=== PATIENT | male | born 1990 | race Caucasian/White ===

== ENCOUNTER 2024-08-13 09:47 | Inpatient (IN) ==
--- NOTE | 2024-08-13 09:53 | Emergency Department Note ---
Impression & Plan Pulmonary embolism, Hypoxia, Elevated troponin, Tachycardia, Right ventricular dilation, secondary ED Provider Note CHIEF COMPLAINT: Shortness of breath HISTORY OF PRESENTING ILLNESS: This 34-year-old male patient presents to the emergency department via EMS with his family for evaluation of shortness of breath that started 2 days ago. The patient states that he feels dizzy whenever he has SOB. Any kind of exertion causes increased SOB. Feels like he can't take a deep breath without his chest feeling tight. However, denies chest pain other than the tightness from the SOB. He was sick last week, but no longer having any cough or URI symptoms. Had a low grade fever last week, but none this week. No previous history of problems with his lungs or heart. He is a former smoker and currently vapes. The patient denies recent long car or plane rides or recent injury/trauma/surgery. Denies any personal history of blood clots or bleeding disorders. Denies any family history of blood clots or bleeding disorders. Denies any hormonal medication use. Denies any hemoptysis. Denies leg/calf pain or swelling. Denies abdominal pain, nausea, or vomiting. The patient used an albuterol inhaler twice this morning without improvement of his symptoms. REVIEW OF SYSTEMS: See HPI for pertinent positives and pertinent negatives. ALLERGIES: NKDA MEDICATIONS: Sertraline, Amitriptyline, Omeprazole, Vit D PAST MEDICAL HISTORY: Anxiety, Depression, GERD, PHYSICAL EXAM: VITALS: Vitals are noted on the nurse's note and reviewed by myself. GENERAL: Non toxic, no acute distress, non-diaphoretic. SKIN: No obvious abnormal rashes or skin lesions. Capillary refill <2 sec. EYES: PERRLA. EOMI. Conjunctivae without injection, sclerae without icterus. NOSE: Patent without discharge. MOUTH: Mucous membranes moist. Uvula midline. Airway patent. NECK: Supple without nuchal rigidity. HEART: Tachycardic without murmurs gallops or rubs. LUNGS: Clear to auscultation bilaterally without wheezes, rales or rhonchi. No retractions or accessory muscle use. ABDOMEN: Positive bowel sounds x 4. Normal tympanic percussion. Soft, nontender. No masses or organomegaly. Alanis sign negative. No guarding or rebound tenderness. No focal RLQ or LLQ tenderness. MUSCULOSKELETAL: No gross musculoskeletal defects. Bilateral lower extremities without erythema, edema, warmth, tenderness to palpation, or cording felt. Negative Homans' sign. Peripheral pulses 2+ and equal in the bilateral upper and lower extremities. NEURO: Patient was alert and oriented. No focal neurological deficits. DIFFERENTIAL DIAGNOSIS: Differential diagnosis includes URI, bronchitis, pneumonia, pneumothorax, hemothorax, PE, SD, pericarditis, myocarditis, airway obstruction, aspiration, pulmonary edema, asthma, COPD, CHF, pleurisy, metabolic acidosis, anemia, neoplasm, or others. ED COURSE AND MEDICAL DECISION MAKING: MEDICATIONS GIVEN: 500 mL normal saline solution bolus. Heparin bolus and drip by weight-based protocol MONITOR: Continuous cardiac cath technologist: Order was placed for continuous cardiac cath technologist. Patient was placed on the cardiac cath technologist and continuous pulse ox. Patient was noted to be in sinus tachycardia at an initial rate of 124 bpm per my interpretation. EKG: EKG was interpreted by myself as sinus tachycardia at 120 bpm with no acute ST or T wave changes and no obvious evidence of SVT. INTERPRETATION OF LABS: I interpreted the labs with full lab results as below in the lab section of this note. Pertinent lab results discussed in the MDM section below. INTERPRETATION OF IMAGING: Imaging studies were interpreted by myself and read by radiology as per the imaging section of this note. CTA of the chest with IV contrast shows extensive bilateral pulmonary emboli with evidence of right heart strain. Subsegmental left basilar opacity suggestive of atelectasis versus developing pulmonary infarcts. Venous Doppler of the bilateral upper and lower extremities as ordered by the admitting team were negative for evidence of DVT. CONSULTATIONS: [facility]. Hansel Sanderson PA-C of the ICU. On-call hospitalist. CRITICAL CARE: I have personally spent 40 minutes of critical care time in the direct management of this patient. This includes bedside care, interpretation of diagnostic studies, and testing, discussion with consultants, patient, and family members, and other required patient management activities. This 40 minutes is in excess of all separately billable procedures. MDM SUMMARY: I examined the patient. The patient presents to the emergency department for evaluation of shortness of breath and tightness in his chest with trying to take a deep breath that started 2 days ago. He had URI symptoms last week, but those resolved. He does have a history of former tobacco use and current vaping. He used his albuterol inhaler twice this morning without improvement of his symptoms. The patient is tachycardic into the 120s on evaluation and was in the 130s per EMS. When the patient exerts himself, his heart rate increases to the 150s. No evidence for obvious SVT on the monitor. EKG showed sinus tachycardia at 120 bpm, but no acute ST or T wave changes. An IV lock was placed and labs were drawn. Due to a severe shortage of IV fluids, only 500 mL liter normal saline solution bolus was given. The patient declined any medication for pain at this time. I had significant concern for PE based on his history, exam, and vital signs. Therefore, due to the patient's healthy status, he was sent down emergently to CT scan prior to results of the blood work. The director of digital technology called me as soon as the CTA was performed and stated he thought that he saw blood clots in the lungs. I reviewed the imaging myself as soon as I receive this phone call and confirmed evidence for bilateral extensive pulmonary embolism. I had a meaningful discussion about this patient with Dr. Davison who agrees with my assessment and the treatment plan. Dr. Davison reviewed the CT scan as well and was in agreement. The patient has no known risk factor or trigger for blood clots. Hypercoagulability workup labs were drawn and the patient was started on a heparin bolus and drip by weight-based protocol. The patient remained tachycardic with increase in his heart rate with any exertion. The patient was initially in the low 90s on pulse ox, but he did become hypoxic down to 86%. He was then placed on 2 L of oxygen by nasal cannula with resolution of the hypoxia. Official radiology report of the CTA of the chest with IV contrast shows extensive bilateral pulmonary emboli with evidence of right heart strain. Subsegmental left basilar opacity suggestive of atelectasis versus developing pulmonary infarcts. Venous Doppler of the bilateral upper and lower extremities as ordered by the admitting team were negative for evidence of DVT. White blood cell count normal at 7.32. Hemoglobin normal at 14.4. Platelet count normal at 204. Coags normal. Glucose 104, but CMP otherwise normal. Lipase normal. TSH normal. Magnesium normal. High-sensitivity troponin elevated at 267.7 with repeat high-sensitivity troponin of 562.6. Hypercoagulability workup is still pending. I spoke with the on-call hospitalist as well as Hansel Sanderson PA-C from the ICU and a bedside stat ECHO was performed to help assist with decision on whether the patient could be hospitalized locally or whether he required transfer. STAT ECHO showed sinus tachycardia with a normal left ventricle. The right ventricle is mild to moderately enlarged with Davison sign present consistent with right ventricular strain. No valvular disease. Right ventricular systolic pressure is mildly elevated at 30 to 40 mmHg. After the results of the ECHO, the ICU team felt the patient could be admitted to the ICU rather than being transferred. They will continue the heparin, but have a low threshold for thromboembolic therapy including tPA. I spoke with the on-call hospitalist again who will assist with the admission. Please refer to their dictations for further detail. The patient's care was transferred in guarded, but stable condition. DIAGNOSIS: Bilateral pulmonary embolism Right ventricular strain Hypoxia Tachycardia Elevated troponin Past Med/Surg History Problem List (Updated 08/13/24 @ 19:28 by Maeve Love PA-C) Elevated troponin (Acute) Right ventricular dilation, secondary (Acute) Tachycardia (Acute) Hypoxia (Acute) Pulmonary embolism (Acute ~08/13/24) Medical History (Updated 08/13/24 @ 19:28 by Maeve Love PA-C) Depression Anxiety Nephrolithiasis Surgical History (Updated 08/13/24 @ 13:09 by Nivia Gallego PA-C) No pertinent past surgical history Family History (Updated 08/13/24 @ 12:00 by Nivia Gallego PA-C) Denies family history of Pulmonary embolism Social History (Updated 08/13/24 @ 12:00 by Nivia Gallego PA-C) Smoking Status: Current every day smoker Tobacco Type: E-cigarettes / Vaping Do You Dip or Chew Tobacco: No; Hx Alcohol Use: Yes Alcohol type: beer Hx Substance Use: No Preferred Language: Armenian Communication Ability: Effective Arc Cutter Plasma Arc Required: No Beliefs That Will Affect Care: None marital status: Current Living Situation: Spouse and Family current occupational status: employed current occupation: [employer] Other Information That Helps Us Care for You: No Feels Safe at Home: Yes Safety Concerns: Feels Safe At This Time Assistive Devices: CPAP Assistive Devices Comment: doesnt use it but is supposed to Allergies Allergies Allergy/AdvReac Type Severity Reaction Status Date / Time No Known Allergies Allergy Unverified 04/20/20 11:42 Home Meds Home Medications Medication Instructions Recorded Confirmed amitriptyline 75 mg tablet 75 mg PO HS 08/13/24 08/13/24 cholecalciferol (vitamin D3) 50 50 mcg PO HS 08/13/24 08/13/24 mcg (2,000 unit) capsule (Vitamin D3) omeprazole 20 mg tablet,delayed 20 mg PO HS 08/13/24 08/13/24 release sertraline 100 mg tablet 100 mg PO HS 08/13/24 08/13/24 Results & Data (ED) Vital Signs Vital Signs - 24 hr 08/13/24 09:58 08/13/24 09:58 08/13/24 09:58 Temperature 36.5 C Temperature Source Oral Pulse Rate 121 H Pulse Rate from SpO2 Sensor Respiratory Rate 15 Respiratory Effort / Characteristics Non-Labored Spontaneous Non-Labored Spontaneous Respiratory Depth Normal Normal Respiratory Pattern Regular Blood Pressure 118/94 Blood Pressure Mean 102 Pulse Oximetry 93 Oxygen Delivery Method Room Air Room Air Room Air Oxygen Flow Rate Sepsis Recent Fever Within 48 Hours No Sepsis New/Unexplained Change in Mental Status N/A Sepsis Action Taken by Nursing No Action Required 08/13/24 10:00 08/13/24 10:00 08/13/24 10:00 Temperature Temperature Source Pulse Rate Pulse Rate from SpO2 Sensor Respiratory Rate Respiratory Effort / Characteristics Respiratory Depth Respiratory Pattern Blood Pressure 118/94 118/94 118/94 Blood Pressure Mean 109 109 109 Pulse Oximetry Oxygen Delivery Method Oxygen Flow Rate Sepsis Recent Fever Within 48 Hours Sepsis New/Unexplained Change in Mental Status Sepsis Action Taken by Nursing 08/13/24 10:00 08/13/24 10:02 08/13/24 10:08 Temperature Temperature Source Pulse Rate 124 H Pulse Rate from SpO2 Sensor 251 H Respiratory Rate 22 Respiratory Effort / Characteristics Respiratory Depth Respiratory Pattern Blood Pressure 118/94 Blood Pressure Mean 109 Pulse Oximetry 93 Oxygen Delivery Method Room Air Oxygen Flow Rate Sepsis Recent Fever Within 48 Hours Sepsis New/Unexplained Change in Mental Status Sepsis Action Taken by Nursing 08/13/24 10:17 08/13/24 10:20 08/13/24 10:28 Temperature Temperature Source Pulse Rate 150 H 127 H 125 H Pulse Rate from SpO2 Sensor 149 H 124 H Respiratory Rate 29 H 21 Respiratory Effort / Characteristics Respiratory Depth Respiratory Pattern Blood Pressure Blood Pressure Mean Pulse Oximetry 86 L 97 Oxygen Delivery Method Room Air Nasal Cannula Oxygen Flow Rate 3 Sepsis Recent Fever Within 48 Hours Sepsis New/Unexplained Change in Mental Status Sepsis Action Taken by Nursing 08/13/24 10:38 08/13/24 10:47 08/13/24 10:50 Temperature Temperature Source Pulse Rate 121 H 114 H 115 H Pulse Rate from SpO2 Sensor 121 H 114 H 115 H Respiratory Rate 16 22 22 Respiratory Effort / Characteristics Respiratory Depth Respiratory Pattern Blood Pressure Blood Pressure Mean Pulse Oximetry 99 100 100 Oxygen Delivery Method Oxygen Flow Rate Sepsis Recent Fever Within 48 Hours Sepsis New/Unexplained Change in Mental Status Sepsis Action Taken by Nursing 08/13/24 10:56 08/13/24 11:00 08/13/24 11:00 Temperature Temperature Source Pulse Rate 112 H Pulse Rate from SpO2 Sensor 113 H Respiratory Rate 20 Respiratory Effort / Characteristics Respiratory Depth Respiratory Pattern Blood Pressure 126/97 126/97 Blood Pressure Mean 108 108 Pulse Oximetry 99 Oxygen Delivery Method Oxygen Flow Rate Sepsis Recent Fever Within 48 Hours Sepsis New/Unexplained Change in Mental Status Sepsis Action Taken by Nursing 08/13/24 11:00 08/13/24 11:11 08/13/24 11:29 Temperature Temperature Source Pulse Rate 115 H 112 H Pulse Rate from SpO2 Sensor 113 H 111 H Respiratory Rate 17 21 Respiratory Effort / Characteristics Respiratory Depth Respiratory Pattern Blood Pressure 126/97 Blood Pressure Mean 108 Pulse Oximetry 97 96 Oxygen Delivery Method Oxygen Flow Rate Sepsis Recent Fever Within 48 Hours Sepsis New/Unexplained Change in Mental Status Sepsis Action Taken by Nursing 08/13/24 11:50 08/13/24 11:59 08/13/24 12:00 Temperature Temperature Source Pulse Rate 113 H 108 H Pulse Rate from SpO2 Sensor 114 H 109 H Respiratory Rate 21 20 Respiratory Effort / Characteristics Respiratory Depth Respiratory Pattern Blood Pressure 122/95 Blood Pressure Mean 104 Pulse Oximetry 100 100 Oxygen Delivery Method Oxygen Flow Rate Sepsis Recent Fever Within 48 Hours Sepsis New/Unexplained Change in Mental Status Sepsis Action Taken by Nursing 08/13/24 12:48 Temperature Temperature Source Pulse Rate 109 H Pulse Rate from SpO2 Sensor 109 H Respiratory Rate 17 Respiratory Effort / Characteristics Respiratory Depth Respiratory Pattern Blood Pressure Blood Pressure Mean Pulse Oximetry 99 Oxygen Delivery Method Oxygen Flow Rate Sepsis Recent Fever Within 48 Hours Sepsis New/Unexplained Change in Mental Status Sepsis Action Taken by Nursing Laboratory Data 08/13/24 10:02 08/13/24 10:57 Lab Results 08/13/24 08/13/24 08/13/24 Range/Units 10:02 10:57 12:15 WBC 7.32 (4.8-10.8) K/ul RBC 4.57 L (4.70-6.10) M/uL Hgb 14.4 (14.0-18.0) g/dl Hct 43.6 (42.0-52.0) % MCV 95.4 (80.0-100.0) fL MCH 31.5 (25.0-34.0) pg MCHC 33.0 (32.0-36.0) g/dL RDW Std Deviation 42.5 (36.4-46.3) fL RDW Coeff of Stewart 12.1 (11.5-14.5) % Plt Count 204 (130-400) K/uL MPV 10.9 (9.4-12.4) fL Immature Gran % (Auto) 1.8 % Neut % (Auto) 74.1 % Lymph % (Auto) 17.3 % Travis % (Auto) 6.0 % Eos % (Auto) 0.7 % Baso % (Auto) 0.1 % Neut # (Auto) 5.42 (1.40-6.50) K/uL Lymph # (Auto) 1.27 (1.20-3.40) K/uL Travis # (Auto) 0.44 (0.11-0.59) K/uL Eos # (Auto) 0.05 (0.00-0.50) K/uL Baso # (Auto) 0.01 (0.00-0.20) K/uL Immature Gran # (Auto) 0.13 (0.01-0.20) K/uL PT 11.1 (9.0-12.0) Seconds INR 1.0 (0.9-1.1) APTT 25 (21-31) Seconds PTT Ratio 0.9 Sodium TNP 138 Potassium TNP 4.3 Chloride 105 (98-107) mmol/L Carbon Dioxide 26 (21-32) mmol/L Anion Gap TNP BUN 12 (6-23) mg/dl Creatinine 1.21 (0.6-1.4) mg/dl Est Cr Clr Drug Dosing 84.3 ml/min eGFR 80.08 BUN/Creatinine Ratio 9.9 L (10-20) Glucose 104 H (70-99(Fasting)) mg/dl Calcium 9.7 (8.6-10.3) mg/dl Magnesium TNP 1.7 Total Bilirubin 0.4 (0.2-1.0) mg/dl AST TNP 19 ALT 24 (7-52) U/L Alkaline Phosphatase 94 (34-104) U/L Troponin I High Sens 267.7 H* 562.6 H* D (0-20) pg/ml B-Natriuretic Peptide 29 (0-100) pg/ml Total Protein 7.9 (6.0-8.3) gm/dl Albumin 4.7 (3.4-5.0) gm/dl Globulin 3.2 (2.5-4.0) gm/dl Albumin/Globulin Ratio 1.5 (0.9-2) Lipase 29 (11-82) U/L TSH 2.118 (0.300-4.500) uIu/ml Administered Medications Heparin Sodium/Dextrose (Heparin Sodium/Dextrose) 25,000 units in 500 mls @ 25 mls/hr IV .Q20H GRACIELA; Protocol Stop: 09/12/24 10:44 Last Titration: 08/13/24 17:34 Dose: 0 units/hr, 0 mls/hr Documented By: ANTONIA Co-signed By: RITU Admin: 08/13/24 10:31 Dose: 1,250 units/hr, 25 mls/hr Documented By: KONSTANTIN Co-signed By: YOMI Miscellaneous (Icu Protocol For Hyperglycemia) 1 each N/A ACHS GRACIELA Stop: 08/15/24 16:29 Last Admin: 08/13/24 17:17 Dose: Not Given Documented By: ANTONIA Discontinued Medications Heparin Sodium (Porcine) (Heparin Sod (Porcine) 1000 Unit/Ml) 6,000 units IV NOW STA Stop: 08/13/24 10:29 Last Admin: 08/13/24 10:31 Dose: 6,000 units Documented By: KONSTANTIN Co-signed By: YOMI Heparin Sodium/Dextrose (Heparin Iv Adult Wt-Based Standard W/ Initial Bolus Protocol) 1 each IV NOW STA; Protocol Stop: 08/13/24 10:21 Last Admin: 08/13/24 10:31 Dose: Not Given Documented By: KONSTANTIN Sodium Chloride (Nss) 500 mls @ 999 mls/hr IV .Q31M ONE Stop: 08/13/24 10:32 Last Infusion: 08/13/24 11:14 Dose: Infused Documented By: Admin: 08/13/24 10:34 Dose: 999 mls/hr Documented By: KONSTANTIN Ioversol (Optiray 320 125ml) 112 ml IV ONCE ONE Stop: 08/13/24 10:10 Last Admin: 08/13/24 10:09 Dose: 112 ml Documented By: GAGAN Imaging Data Radiologist's Impression: Chest CTA 08/13/24 10:02 CT angio chest PE protocol CT DOSE: 726.44 mGy.cm HISTORY: 34 years-old Male with Chest Pain, eval for PE. Acute chest pain with shortness of breath TECHNIQUE: Multiple CTA images of the chest were obtained after the intravenous administration of 112 ml Optiray. Coronal and sagittal MIPS were obtained from the axial data set and were submitted for review. All measurements were obtained according to NASCET criteria. A dose lowering technique was utilized adhering to the principles of ALARA. COMPARISON: CT abdomen and pelvis 04/20/2020 FINDINGS: CTA: Heart is normal in size without pericardial effusion. Unremarkable thoracic aorta. There is a large amount of bilateral main, lobar, segmental and subsegmental pulmonary emboli bilaterally. There is straightening of the intraventricular septum. No sagittal pulmonary embolus identified. . CT CHEST: No thyroid nodule identified.r mediastinal and hilar lymph nodes measuring up to 8 mm are favored to be benign. No pathologically enlarged lymph nodes. There is no pneumothorax, pleural effusion or pulmonary edema. Subsegmental left basilar groundglass and consolidative opacities. Right lung is generally clear. Central airways are clear. No acute upper abdominal abnormality. No acute fracture. IMPRESSION: 1. Extensive bilateral pulmonary emboli with evidence of right heart strain. 2. Subsegmental left basilar opacities suggestive of atelectasis versus developing pulmonary infarct(s). ACT 112: Negative or not required by law. The above report was generated using voice recognition software. It may contain grammatical, syntax or spelling errors. Electronically signed by: Sathish Garcia M.D. 08/13/2024 10:49 AM Venous Doppler Study 08/13/24 11:54 ULTRASOUND BILATERAL LOWER EXTREMITY VENOUS CLINICAL HISTORY: Pulmonary embolus. COMPARISON STUDY: No priors. TECHNIQUE: Real-time, grayscale, and color Doppler sonography of the deep veins of the right and left lower extremity was performed from the inguinal crease to the calf. Compression and augmentation were utilized. FINDINGS: There is no sonographic evidence of deep venous thrombosis identified in the right or left lower extremity. The common femoral, superficial femoral, and popliteal veins are patent and normally compressible bilaterally. The greater saphenous vein and the profunda femoris vein at the junction with the common femoral vein are clear in both legs. The visualized calf veins are patent bilaterally. IMPRESSION: There is no sonographic evidence of deep venous thrombosis identified in the right or left lower extremity. ACT 112: Negative or not required by law. Electronically signed by: Prem Goldstein M.D. 08/13/2024 1:05 PM Discharge Plan Visit Data Chief Complaint: Shortness of Breath/Dyspnea ED Provider: Bhupinder Davison ED Midlevel Provider: Maeve Love Discharge Problem: Pulmonary embolism, Hypoxia, Elevated troponin, Tachycardia, Right ventricular dilation, secondary Patient Disposition: Admitted As Inpatient Condition: Fair Discharge Instructions Interventions: ED Discharge Assessment Last Done: 08/13/24 13:15 Discharge Problem: Pulmonary embolism Qualifiers: Pulmonary embolism type: unspecified Chronicity: acute
[2024-08-13] MEDS: OPTIRAY 320 125ml IV ONE (10:09)
[2024-08-13] MEDS: HEPARIN SODIUM/DEXTROSE 25,000 UNITS/500 ML BAG IV SCH (10:31)
[2024-08-13] MEDS: HEPARIN SOD (PORCINE) 1000 UNIT/ML IV STA (10:31)
[2024-08-13] MEDS: Heparin IV Adult Wt-Based Standard w/ INITIAL Bolus Protocol IV STA (10:31)
[2024-08-13] MEDS: SODIUM CHLORIDE 0.9% 500 ML IV ONE (10:34)
[2024-08-13] MEDS ORDERED: HEPARIN SOD (PORCINE) 1000 UNIT/ML IV ONE (10:36)
[2024-08-13 10:38] LABS: Basophils # (auto) 0.01 K/uL (0.00-0.20); Basophils % (auto) 0.1 %; Eosinophils # (auto) 0.05 K/uL (0.00-0.50); Eosinophils % (auto) 0.7 %; Hematocrit (blood only) 43.6 % (42.0-52.0); Hemoglobin 14.4 g/dl (14.0-18.0); Immature Granulocytes # (auto) 0.13 K/uL (0.01-0.20); Immature Granulocytes % (auto) 1.8 %; Lymphocytes # (auto) 1.27 K/uL (1.20-3.40); Lymphocytes % (auto) 17.3 %; Mean Corpuscular Hemoglobin 31.5 pg (25.0-34.0); Mean Corpuscular Volume 95.4 fL (80.0-100.0); Mean Platelet Volume 10.9 fL (9.4-12.4); Monocytes # (auto) 0.44 K/uL (0.11-0.59); Neutrophils # (auto) 5.42 K/uL (1.40-6.50); Neutrophils % (auto) 74.1 %; Platelet Count 204 K/uL (130-400); RDW Coefficient of Variation 12.1 % (11.5-14.5); RDW Standard Deviation 42.5 fL (36.4-46.3); Red Blood Count 4.57 M/uL (4.70-6.10); White Blood Count 7.32 K/ul (4.8-10.8)
--- NOTE | 2024-08-13 10:50 | CT Scan Report ---
CT angio chest PE protocol CT DOSE: 726.44 mGy.cm HISTORY: 34 years-old Male with Chest Pain, eval for PE. Acute chest pain with shortness of breath TECHNIQUE: Multiple CTA images of the chest were obtained after the intravenous administration of 112 ml Optiray. Coronal and sagittal MIPS were obtained from the axial data set and were submitted for review. All measurements were obtained according to NASCET criteria. A dose lowering technique was u tilized adhering to the principles of ALARA. COMPARISON: CT abdomen and pelvis 04/20/2020 FINDINGS: CTA: Heart is normal in size without pericardial effusion. Unremarkable thoracic aorta. There is a large a mount of bilateral main, lobar, segmental and subsegmental pulmonary emboli bilaterally. There is str aightening of the intraventricular septum. No sagittal pulmonary embolus identified. . CT CHEST: No thyroid nodule identified.r mediastinal and hilar lymph nodes measuring up to 8 mm are favored to be benign. No pathologically enlarged lymph nodes. There is no pneumothorax, pleural effusion or pulmonary edema. Subsegmental left basilar groundglass and consolidative opacities. Right lung is generally clear. Central airways are clear. No acute upper abdominal abnormality. No acute fracture. IMPRESSION: 1. Extensive bilateral pulmonary emboli with evidence of right heart strain. 2. Subsegmental left basilar opacities suggestive of atelectasis versus developing pulmonary infarct( s). ACT 112: Negative or not required by law. The above report was generated using voice recognition software. It may contain grammatical, syntax o r spelling errors. Electronically signed by: Sathish Garcia M.D. 08/13/2024 10:49 AM
[2024-08-13 10:51] LABS: Troponin I High Sensitivity 267.7 pg/ml (0-20)
[2024-08-13 10:53] LABS: Alanine Aminotransferase 24 U/L (7-52); Albumin Globulin Ratio 1.5 (0.9-2); Albumin Level 4.7 gm/dl (3.4-5.0); Alkaline Phosphatase 94 U/L (34-104); BUN Creatinine Ratio 9.9 (10-20); Bilirubin,Total 0.4 mg/dl (0.2-1.0); Blood Urea Nitrogen 12 mg/dl (6-23); Calcium 9.7 mg/dl (8.6-10.3); Carbon Dioxide 26 mmol/L (21-32); Chloride 105 mmol/L (98-107); Creatinine Clr Calc Pharmacy 84.3 ml/min; Globulin 3.2 gm/dl (2.5-4.0); Glucose 104 mg/dl (70-99(Fasting)); Lipase 29 U/L (11-82); Total Protein 7.9 gm/dl (6.0-8.3)
[2024-08-13 10:55] LABS: Thyroid Stimulating Hormone 2.118 uIu/ml (0.300-4.500)
[2024-08-13 10:59] LABS: Partial Thromboplastin Ratio 0.9; Partial Thromboplastin Time 25 Seconds (21-31); Prothrombin Time 11.1 Seconds (9.0-12.0)
[2024-08-13 11:27] LABS: Magnesium 1.7 mg/dl (1.7-2.4); Potassium 4.3 mmol/L (3.5-5.1)
--- NOTE | 2024-08-13 12:03 | History & Physical Report ---
Date of Service August 13, 2024 Assessment & Plan (1) Pulmonary embolism: (2) Hypoxia: (3) Right ventricular dilation, secondary: (4) Elevated troponin: Plan This is a 34 yr old M who has a significant PMH of anxiety, depression, hx of tobacco abuse who presents to ED 2/2 SOB and hypoxia. 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 Over the last 2 days he complained of LY and chest heaviness. Chest CTA: Extensive bilateral pulmonary emboli with evidence of right heart strain.2. Subsegmental left basilar opacities suggestive of atelectasis versus developing pulmonary infarct(s). Echocardiogram: left ventricular wall motion is normal. The right ventricle is mild to moderately enlarged with McConnel sign present consistent with PE, RV Strain, RVSP 30-40mmHg Bilateral Pulmonary Embolism Hypoxia Right heart strain with right ventricular dilation Elevated troponin admit to ICU discussed case with apprentice photographer AVTAR Hansel Continue IV heparin gtt for now will defer to apprentice photographer regarding need for thrombolytics Upper extremity dopplers, biofire pending continue supportive care Venous duplex negative bilateral hypercoagulable panel pending, cycle trops appears PE unprovoked given lack of risk factors Depression/Anxiety: chronic, continue home meds Vaping hx: encourage cessation PCP: PRETTY FULL CODE Dispo: admit to ICU Pt was seen and examined in collaboration with Dr. Montelongo, please see addendum I spent a total of 76 minutes reviewing notes, outpatient records, labs, medication, coordinating, documenting and providing care for this patient excluding time spent in the performance of separately billed services. History of Present Illness Chief Complaint: SOB x 2 days. Primary Care Provider: NO PCP This is a 34 yr old M who has a significant PMH of anxiety, depression, hx of tobacco abuse who presents to ED 2/2 SOB and hypoxia. 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 Over the last 2 days he complained of LY and chest heaviness. He states when he would be doing his checks at work even a small walk would cause him to be winded. He went to work today and due to symptoms decided to go over to medical where they found him to be hypoxic around 85% and tachycardic. They referred him to ED. He denies any recent travel or procedures. at bedside helps elicit history. He denies any f/c/s, chest pain, cough, hemoptysis, n/v/d, abd pain, change in bowel or urinary habits. Upon arrival to ED he was notably hypoxic and placed on nasal cannula. CTA chest revealed : Extensive bilateral pulmonary emboli with evidence of right heart strain.2. Subsegmental left basilar opacities suggestive of atelectasis versus developing pulmonary infarct(s). He was started on IV heparin. His troponin was elevated at 267.7pg/ml. Allergies Allergy/AdvReac Type Severity Reaction Status Date / Time No Known Allergies Allergy Unverified 04/20/20 11:42 Home Medications Medication Instructions Recorded Confirmed Type amitriptyline 75 mg tablet 75 mg PO HS 08/13/24 08/13/24 History cholecalciferol (vitamin D3) 50 50 mcg PO HS 08/13/24 08/13/24 History mcg (2,000 unit) capsule (Vitamin D3) omeprazole 20 mg tablet,delayed 20 mg PO HS 08/13/24 08/13/24 History release sertraline 100 mg tablet 100 mg PO HS 08/13/24 08/13/24 History Past Med/Surg History Problem List (Updated 08/13/24 @ 13:09 by Nivia Gallego PA-C) Elevated troponin Right ventricular dilation, secondary Tachycardia Hypoxia Pulmonary embolism (~08/13/24) Medical History (Updated 08/13/24 @ 13:09 by Nivia Gallego PA-C) Depression Anxiety Nephrolithiasis Surgical History (Updated 08/13/24 @ 13:09 by Nivia Gallego PA-C) No pertinent past surgical history Family History (Updated 08/13/24 @ 12:00 by Nivia Gallego PA-C) Denies family history of Pulmonary embolism Social History (Updated 08/13/24 @ 12:00 by Nivia Gallego PA-C) Smoking Status: Current every day smoker Tobacco Type: Cigarettes and E-cigarettes / Vaping Hx Alcohol Use: Yes (rare alcohol currently, previously was heavy use) Hx Substance Use: No Preferred Language: Azeri Communication Ability: Effective marital status: Current Living Situation: Spouse current occupational status: employed current occupation: [employer] Feels Safe at Home: Yes Review of Systems Review of Systems: All systems reviewed & are unremarkable except as noted in HPI & below Physical Exam Physical Exam: constitutional: WD/WN, vitals as above, NAD, sitting up in bed, pleasant, conversing easily Head: Normocephalic, Atraumatic Eyes: PERRL, conjunctivae normal, anicteric sclerae ENMT: external ear and nose normal, oropharynx normal Neck: trachea midline, no thyromegaly normal visual inspection Respiratory: normal respiratory effort, lungs clear to auscultation, no wheeze, rales, rhonchi. Normal insp/exp effort, no accessory muscle use 3L of O2 via nC Cardiovascular: Tachycardic rate, regular rhythm, no murmur, no edema Vessels: no JVD or carotid bruit Chest: normal inspection of chest Abdomen: normal bowel sounds, soft, nontender, no hepatosplenomegaly Musculoskeletal: no cyanosis or clubbing, extremities motor strength 5/5 Skin: no rashes, warm and dry normal turgor Neurologic: PERRL, EOMI, accommodation nl, no face palsy, no dysarthria CN's II-XI intact bilaterally and moves all extremities Psychiatric: A+Ox3, euthymic affect Lymphatic: no cervical or axillary lymphadenopathy : deferred Results & Data Results & Data Vital Signs (Past 12 Hours) Vital Signs Temp Pulse Resp BP Pulse Ox O2 Del Method O2 Flow Rate 08/13/24 11:11 115 H 17 97 08/13/24 11:00 126/97 08/13/24 11:00 126/97 08/13/24 11:00 126/97 08/13/24 10:56 112 H 20 99 08/13/24 10:50 115 H 22 100 08/13/24 10:47 114 H 22 100 08/13/24 10:38 121 H 16 99 08/13/24 10:28 125 H 08/13/24 10:20 127 H 21 97 Nasal Cannula 3 08/13/24 10:17 150 H 29 H 86 L Room Air 08/13/24 10:08 Room Air 08/13/24 10:02 124 H 22 93 08/13/24 10:00 118/94 08/13/24 10:00 118/94 08/13/24 10:00 118/94 08/13/24 10:00 118/94 08/13/24 09:58 Room Air 08/13/24 09:58 36.5 C 121 H 15 118/94 93 Room Air 08/13/24 09:58 Room Air Laboratory Results I have independently reviewed and interpreted patient's admitting labs including CBC, CMP, PTT, PT/INR, mag, lipase, tsh, and troponin. Diagnostic Findings Chest CTA 08/13/24 10:02 CT angio chest PE protocol CT DOSE: 726.44 mGy.cm HISTORY: 34 years-old Male with Chest Pain, eval for PE. Acute chest pain with shortness of breath TECHNIQUE: Multiple CTA images of the chest were obtained after the intravenous administration of 112 ml Optiray. Coronal and sagittal MIPS were obtained from the axial data set and were submitted for review. All measurements were obtained according to NASCET criteria. A dose lowering technique was utilized adhering to the principles of ALARA. COMPARISON: CT abdomen and pelvis 04/20/2020 FINDINGS: CTA: Heart is normal in size without pericardial effusion. Unremarkable thoracic aorta. There is a large amount of bilateral main, lobar, segmental and subsegmental pulmonary emboli bilaterally. There is straightening of the intraventricular septum. No sagittal pulmonary embolus identified. . CT CHEST: No thyroid nodule identified.r mediastinal and hilar lymph nodes measuring up to 8 mm are favored to be benign. No pathologically enlarged lymph nodes. There is no pneumothorax, pleural effusion or pulmonary edema. Subsegmental left basilar groundglass and consolidative opacities. Right lung is generally clear. Central airways are clear. No acute upper abdominal abnormality. No acute fracture. IMPRESSION: 1. Extensive bilateral pulmonary emboli with evidence of right heart strain. 2. Subsegmental left basilar opacities suggestive of atelectasis versus developing pulmonary infarct(s). ACT 112: Negative or not required by law. The above report was generated using voice recognition software. It may contain grammatical, syntax or spelling errors. Electronically signed by: Sathish Garcia M.D. 08/13/2024 10:49 AM Medications Administered Current Inpatient Medications Heparin Sodium/Dextrose (Heparin Sodium/Dextrose) 25,000 units in 500 mls @ 25 mls/hr IV .Q20H GRACIELA; Protocol Stop: 09/12/24 10:44 Last Admin: 08/13/24 10:31 Dose: 1,250 units/hr, 25 mls/hr ECG Additional Comments: I have independently reviewed and interpreted patient's admitting EKG which revealed: 120 ST, no st or t wave changes noted, qtc 477ms COVID-19 Results Results COVID- Adm Lab Results: RBC 4.57 M/uL (4.70-6.10) L 08/13/24 WBC 7.32 K/ul (4.8-10.8) 08/13/24 Hgb 14.4 g/dl (14.0-18.0) 08/13/24 Hct 43.6 % (42.0-52.0) 08/13/24 Plt Count 204 K/uL (130-400) 08/13/24 Neutrophils (%) (Auto) 74.1 % 08/13/24 Lymphocytes (%) (Auto) 17.3 % 08/13/24 Monocytes # (Auto) 0.44 K/uL (0.11-0.59) 08/13/24 Eosinophils # (Auto) 0.05 K/uL (0.00-0.50) 08/13/24 Immature Granulocyte % (Auto) 1.8 % 08/13/24 Neutrophils # (Auto) 5.42 K/uL (1.40-6.50) 08/13/24 Lymphocytes # (Auto) 1.27 K/uL (1.20-3.40) 08/13/24 Monocytes # (Auto) 0.44 K/uL (0.11-0.59) 08/13/24 Eosinophils # (Auto) 0.05 K/uL (0.00-0.50) 08/13/24 Basophils # (Auto) 0.01 K/uL (0.00-0.20) 08/13/24 Immature Granulocyte # (Auto) 0.13 K/uL (0.01-0.20) 4 Na 138 mmol/L (136-145) 08/13/24 K 4.3 mmol/L (3.5-5.1) 08/13/24 Cl 105 mmol/L (98-107) 08/13/24 CO2 26 mmol/L (21-32) 08/13/24 Anion Gap TNP 08/13/24 BUN 12 mg/dl (6-23) 08/13/24 Creatinine 1.21 mg/dl (0.6-1.4) 08/13/24 BUN/Creatinine Ratio 9.9 (10-20) L 08/13/24 Glucose Level 104 mg/dl (70-99(Fasting)) H 08/13/24 Ca 9.7 mg/dl (8.6-10.3) 08/13/24 Total Bilirubin 0.4 mg/dl (0.2-1.0) 08/13/24 AST/SGOT 19 U/L (13-39) 08/13/24 ALT/SGPT 24 U/L (7-52) 08/13/24 Alkaline Phosphatase 94 U/L (34-104) 08/13/24 Total Protein 7.9 gm/dl (6.0-8.3) 08/13/24 Albumin 4.7 gm/dl (3.4-5.0) 08/13/24 Globulin 3.2 gm/dl (2.5-4.0) 08/13/24 Albumin/Globulin Ratio 1.5 (0.9-2) 08/13/24 PTT 25 Seconds (21-31) 08/13/24 INR 1.0 (0.9-1.1) 08/13/24 Code Status & VTE Plan Code Status FULL CODE Supervising Physician Co-Signing Physician Notes 08/13/2024 The patient was seen and examined in the emergency room He has been complaining of shortness of breath for the last 2 days associated with dizziness since today Denies any chest pain and/or palpitation, no fever no chills and no nausea or vomiting He has been ambulant and no history of travel and no history of IV drug abuse On examination Lying in bed without any apparent distress Hemodynamically stable with tachycardia of 105 Chestclear to auscultate bilaterally Heart soundsS1-S2, regular and no murmur appreciated Abdomenbenign Extremitiesno edema His admission labs, EKG, echo and imaging studies reviewed Assessment and plan Noted to have extensive bilateral pulmonary embolism with RV strain on echo No evidence of clot in the legs No definite causes of the clot formation noted and coagulation profile has been sent out Appreciate apprentice photographer input and recommendation to continue with intravenous heparin Discussed about subsequent Coumadin versus Eliquis on discharge Agree with assessment and plan as outlined above by Drea Grewal PA-C and take the full responsibility of the care as documented above Dr Jose Enrique Montelongo
--- NOTE | 2024-08-13 12:52 | Critical Care Consultation ---
Date of Consultation August 13, 2024 Assessment & Plan (1) Pulmonary embolism: (2) Hypoxia: (3) Tachycardia: Plan Reason Critically Ill: 34-year-old male with no reported significant past medical history who presents in the setting of intermediate high risk pulmonary embolism with associated tachycardia and hypoxia requiring close hemodynamic monitoring and possible need for thrombolytic therapy intervention if patient were to decompensate. NEURO - * CAM ICU: NEGATIVE * Depression anxiety: * Continue with maintenance medications. CARDIAC/VASCULAR - * Tachycardia: * Compensatory in the setting of large very emboli. * Permissive for now with rates in the 1 teens to 120s. * Low threshold for thrombolytic therapy if patient is persistently symptomatic. * Patient remains hemodynamically stable. * Monitor on telemetry. RESPIRATORY - * Intermediate high risk pulmonary embolism: * Patient with large clot burden appreciated on CT with initial concerns of RV strain. Echocardiogram reviewed which demonstrates an elevated RVSP at 30 to 50 mmHg only. He does have a positive Davison sign on echocardiogram as well. * Patient remains hemodynamically stable at this time. He does have persistent tachycardia and associated hypoxia with requiring 3 L nasal cannula. * No DVT present in the lower extremities. * Will evaluate upper extremities as well for the sake of completion given patient's complaint of bilateral upper extremity episodes of loss of sensation previously associated with shoulder complaints. * Will also add BioFire for COVID testing given the patient's recent symptoms last week as there is been association of thromboembolic disease in the setting of COVID-19 infection. * For now, would continue with heparin drip. * Low threshold for tPA administration in this patient. I did discuss this with him at great length and he is agreeable to thrombolytic therapy if necessary. * Vaping history: * Encouraged cessation GI/NUTRITION - * Normal diet * Prophylaxis: None required currently. RENAL/LYTES - * No significant electrolyte derangements. - * No immediate concerns. ENDO - * No history of DM or Thyroid Dz * BSGs per unit protocol. ISS --> gtt per unit policy. HEME - * Pulmonary Embolism: * Currently anticoagulated on heparin drip. * Will continue for exploration for possible contribution of clot including upper extremity ultrasound and COVID testing. * To this point, would be considered unprovoked event. * Currently recommend lifelong anticoagulation. * Monitor for signs and symptoms of bleeding while on heparin. ID - * BioFire testing pending LINES/IV ACCESS - * PIVs x2 DVT PROPHYLAXIS - * Heparin drip * SCDs I have personally spent 42 minutes of critical care time in the direct management of this patient. This is a life/limb threatening event. This includes time spent evaluating patient, direct bedside care, chart review, placing orders, interpretation of diagnostic studies, discussion with consultants, patient, and family members, as well as other required patient management activities. This time is exclusive of all separately billable procedures, and teaching time and separate from and in addition to any other critical care service time. Thank you for allowing us to participate in the care of this patient. Please refer to my attending physician's documentation for any further recommendations. Supervising Physician Co-Signing Physician Notes Patient separately seen and examined. Agree with the note as above unless otherwise specified. Patient seemingly with provoked pulmonary embolism likely secondary to COVID-19 infection the week prior. He notes that he tested positive on a home COVID-19 test, but this was by maybe 2 years. He did note that he had a fever of 101 last week and general URI symptoms. Over the last 2 to 3 days he has had increasing shortness of breath and today he had profound shortness of breath which led to his hospitalization. He denies any history of prior VTE or any strong family history of VTE. He does vape on a daily basis. We did discuss thrombolytic therapy at length and indicated to him that should his clinical picture worsen, would strongly encourage the use of systemic thrombolytics such as half dose tPA (50 mg bolus). At this time since he is clinically fairly stable despite his high risk PE, would recommend continued heparin infusion and admission to the ICU. Stat echo noted with evidence of Davison sign. CT chest reviewed with evidence of bilateral clot burden. Will start a full liquid diet. On exam, his lungs sound clear. He has mild tachypnea. Nasal cannula is in place. He does not appear to be in any significant distress. Regular rate and rhythm. No murmurs or gallops. No significant lower extremity edema. Thank you for the consult. Critical care services will continue to follow. History of Present Illness Reason for Consultation: PE Requesting Physician: Maeve Love PA-C Attending Physician: Dr. Davison History of Present Illness Patient is a 34-year-old male with a significant past medical history of anxiety, depression, GERD, and prior diagnosis of obstructive sleep apnea who presented to the emergency department today with abrupt onset of shortness of breath which he developed 2 days ago. 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 He reports being ill with an upper respiratory infection last week, but had not undergone any testing. He had seemed to resolve from this, but reports that the shortness of breath has significantly worsened to the point that he feels dizzy, lightheaded, and presyncopal. He reports no chest pain or palpitations. No pleuritic discomfort. The patient underwent emergent evaluation for possible pulmonary embolism. Findings consistent with large bilateral pulmonary emboli with associated RV strain. Patient's troponin was elevated. Symptomatically, the patient is tachycardic and requiring supplemental oxygen. Pulmonary/critical care medicine consulted in the setting of large pulmonary embolism. Upon evaluation in room A2, the patient is awake, alert, and oriented. He denies any symptoms of chest pain, palpitations, current dizziness, or lightheadedness. He does admit to be impressively short of breath with any exertion. He denies any family history of blood clots or bleeding disorders. No recent long distance travel. He does not use any supplements or exogenous hormones. He does use a vape device for nicotine, but otherwise he reports rare use of alcohol. No illicit drug use. Allergies Allergy/AdvReac Type Severity Reaction Status Date / Time No Known Allergies Allergy Unverified 04/20/20 11:42 Home Medications Medication Instructions Recorded Confirmed Type amitriptyline 75 mg tablet 75 mg PO HS 08/13/24 08/13/24 History cholecalciferol (vitamin D3) 50 50 mcg PO HS 08/13/24 08/13/24 History mcg (2,000 unit) capsule (Vitamin D3) omeprazole 20 mg tablet,delayed 20 mg PO HS 08/13/24 08/13/24 History release sertraline 100 mg tablet 100 mg PO HS 08/13/24 08/13/24 History Patient History Medical History (Updated 08/13/24 @ 13:09 by Nivia Gallego PA-C) Depression Anxiety Nephrolithiasis Surgical History (Updated 08/13/24 @ 13:09 by Nivia Gallego PA-C) No pertinent past surgical history Family History (Updated 08/13/24 @ 12:00 by Nivia Gallego PA-C) Denies family history of Pulmonary embolism Social History (Updated 08/13/24 @ 12:00 by Nivia Gallego PA-C) Smoking Status: Current every day smoker Tobacco Type: E-cigarettes / Vaping Do You Dip or Chew Tobacco: No; Hx Alcohol Use: Yes Alcohol type: beer Hx Substance Use: No Preferred Language: Slovenian Communication Ability: Effective Drip Box Tender Required: No Beliefs That Will Affect Care: None marital status: Current Living Situation: Spouse and Family current occupational status: employed current occupation: [employer] Other Information That Helps Us Care for You: No Feels Safe at Home: Yes Safety Concerns: Feels Safe At This Time Assistive Devices: CPAP Assistive Devices Comment: doesnt use it but is supposed to Review of Systems Review of Systems: A complete 10 point review of systems was reviewed with the patient with pertine nt positives and negatives as per history of present illness. All else were negative. Physical Exam Physical Exam: VITAL SIGNS Vital signs and nursing notes were reviewed. GENERAL 34-year-old male appearing his stated age who is in no acute distress. Communicates well with provider and answers questions appropriately. SKIN Without rashes or lesions. NOSE Midline and without cyanosis. MOUTH/OROPHARYNX Without perioral cyanosis. NECK Neck with FROM. LUNGS Chest wall evaluation demonstrates not chest wall A:P diameter. Auscultation reveals clear breath sounds bilaterally without wheezes, rales, or rhonchi appreciated. CARDIAC RRR with S1/S2. No murmur, rubs, or gallops appreciated. ABDOMEN Abdominal inspection demonstrates a flat abdomen. BS normoactive all four quadrants. No tenderness, palpable masses, or ascites noted. EXTREMITIES Nail clubbing not present. No peripheral cyanosis. No pretibial edema present. +3/5 radial palpated throughout. PSYCH A&Ox3 and cooperates fully with examiner. Pt is very pleasant and interacts well with examiner. Results & Data Results & Data Vital Signs (Past 12 Hours) Vital Signs Temp Pulse Resp BP Pulse Ox O2 Del Method O2 Flow Rate 08/13/24 11:11 115 H 17 97 08/13/24 11:00 126/97 08/13/24 11:00 126/97 08/13/24 11:00 126/97 08/13/24 10:56 112 H 20 99 08/13/24 10:50 115 H 22 100 08/13/24 10:47 114 H 22 100 08/13/24 10:38 121 H 16 99 08/13/24 10:28 125 H 08/13/24 10:20 127 H 21 97 Nasal Cannula 3 08/13/24 10:17 150 H 29 H 86 L Room Air 08/13/24 10:08 Room Air 08/13/24 10:02 124 H 22 93 08/13/24 10:00 118/94 08/13/24 10:00 118/94 08/13/24 10:00 118/94 08/13/24 10:00 118/94 08/13/24 09:58 Room Air 08/13/24 09:58 36.5 C 121 H 15 118/94 93 Room Air 08/13/24 09:58 Room Air Coding Level of Care Code 78365 CRITICAL CARE 1ST 30-74M Diagnoses Pulmonary embolism I26.99 Hypoxia R09.02 Tachycardia R00.0
--- NOTE | 2024-08-13 13:06 | Ultrasound Report ---
ULTRASOUND BILATERAL LOWER EXTREMITY VENOUS CLINICAL HISTORY: Pulmonary embolus. COMPARISON STUDY: No priors. TECHNIQUE: Real-time, grayscale, and color Doppler sonography of the deep veins of the right and left lower extremity was performed from the inguinal crease to the calf. Compression and augmentation wer e utilized. FINDINGS: There is no sonographic evidence of deep venous thrombosis identified in the right or left lower extremity. The common femoral, superficial femoral, and popliteal veins are patent and normally compressible bilaterally. The greater saphenous vein and the profunda femoris vein at the junction w ith the common femoral vein are clear in both legs. The visualized calf veins are patent bilaterally. IMPRESSION: There is no sonographic evidence of deep venous thrombosis identified in the right or lef t lower extremity. ACT 112: Negative or not required by law. Electronically signed by: Prem Goldstein M.D. 08/13/2024 1:05 PM
--- NOTE | 2024-08-13 14:15 | Ultrasound Report ---
ULTRASOUND BILATERAL UPPER EXTREMITY VENOUS CLINICAL HISTORY: Pulmonary embolus. COMPARISON STUDY: No priors. TECHNIQUE: Real-time, grayscale, and color Doppler sonography of the deep veins of the right and left upper extremity is performed. Compression and augmentation were utilized. FINDINGS: There is no sonographic evidence of deep venous thrombosis identified in the right or left upper extremity. The internal jugular, axillary, and brachial veins are patent and normally compressi ble bilaterally. Normal venous waveforms and augmentation are seen within the right and left subclavi an vein. The cephalic and basilic veins are clear in both arms. The visualized radial and ulnar veins are patent bilaterally. IMPRESSION: There is no sonographic evidence of deep venous thrombosis identified in the right or lef t upper extremity. ACT 112: Negative or not required by law. Electronically signed by: Prem Goldstein M.D. 08/13/2024 2:13 PM
[2024-08-13 15:25] LABS: Appearance Urine Clear (Clear); Bilirubin Urine Negative (Negative); Blood Urine Negative (Negative); Color Urine Yellow; Glucose Urine UA Negative (Negative); Ketones Urine Negative (Negative); Leukocyte Esterase Urine Negative (Negative); Nitrite Urine Negative (Negative); Protein Urine Negative (Negative); Specific Gravity Urine 1.035 (1.000-1.030); Urobilinogen Urine Negative (Negative)
[2024-08-13 16:12] LABS: Adenovirus PCR Not Detected (NotDetected); Bordetella parapertussis PCR Not Detected (NotDetected); Bordetella pertussis PCR Not Detected (NotDetected); Chlamydia pneumoniae PCR Not Detected (NotDetected); Coronavirus 229E PCR Not Detected (NotDetected); Coronavirus CoV-2 (COVID19)PCR DETECTED (NotDetected); Coronavirus HKU1 PCR Not Detected (NotDetected); Coronavirus NL63 PCR Not Detected (NotDetected); Coronavirus OC43PCR Not Detected (NotDetected); Human Metapneumovirus PCR Not Detected (NotDetected); Influenza A PCR Not Detected (NotDetected); Influenza B PCR Not Detected (NotDetected); Mycoplasma pneumoniae PCR Not Detected (NotDetected); Parainfluenza Virus 1 PCR Not Detected (NotDetected); Parainfluenza Virus 2 PCR Not Detected (NotDetected); Parainfluenza Virus 3 PCR Not Detected (NotDetected); Parainfluenza Virus 4 PCR Not Detected (NotDetected); Respiratory Syncytial VirusPCR Not Detected (NotDetected); Rhinovirus/Enterovirus PCR Not Detected (NotDetected)
[2024-08-13] MEDS: ICU Protocol for HYPERglycemia SCH (17:17)
[2024-08-13 17:31] LABS: ANTI-Xa, UFH(UnfractionatedHep 1.12 IU/ml (0.3-0.7)
--- OUTSIDE RECORDS SUMMARY | 2024-08-13 17:47 | External Medical Summary | Summary of Care ---
Author Name Unknown Organization [facility] Address [address] [place] [address] Phone [phone] Care Team Providers Care Engineering Department Chair Name Role Phone Unavailable Primary Care Provider Unavailabl e Encounter Details Date Type Department Care Team (Late st Contact Info) Description 05/07/2024 Result Scan Unspecified Department <No scans attached> Allergies No known active allergiesdocumented as of this encounter (statuses as of 05/12/2024) Medications Medication Sig Dispensed Refills Start Date End Date Status KEFLEX 250 MG PO CAPSIndications:Impet igo one cap by mouth 4 times a day 40 0 10/02/2006 Active BACTROBAN 2 % EX OINTIndications:Impet igo apply 3 times a day as directed 15 GM 1 10/02/2006 Active documented as of this encounter (statuses as of 05/12/2024) Immunizations Name Administration Dates Next Due Seasonal Influenza, PF, 6 M & above, IM , (FluLaval or Fluzone) 07/30/2021 documented as of this encounter Social History Tobacco Use Types Packs/Day Years Used Date Smoking Tobacco: Never Alcohol Use Standard Drinks/Week Comments No 0 (1 standard drink = 0.6 oz pur e alcohol) Utilities Answer Date Recorded Do you have trouble paying y our heating, water, or electric bill? (Adult - for ages 18 years and over) Not on file 04/08/2024 Is your family able to pay t he heat, water, or electric bill? (Household - for ages 0-17 years) Not on file 04/08/2024 Does your family have access to good internet? (Household - for ages 0-17 years) Not on file 04/08/2024 Social Connections Answer Date Recorded How often do you feel lonely or isolated from those around you? (Adult - for ages 18 years and over) Not on file 04/08/2024 Sex and Gender Information Value Date Recorded Sex Assigned at Not on file Gender Identity Not on file Sexual Orientation Not on file documented as of this encounter Plan of Treatment Health Maintenance Due Date Last Done Comments DTaP,Tdap,and Td Vaccines (5 - Tdap) 01/13/2000 05/12/1999, 04/16/1990, 01/15/1990, Additional history exists Depression Screening 2001 HIV Screening 01/13/2004 Hepatitis C Screening 2007 COVID-19 Vaccine ( season) 2023 Influenza Vaccine (FLU shot) (#1) 2024 07/30/2021, 07/30/2021, 11/12/2009, Additional history exists MENINGOCOCCAL (MENACTRA/MENVEO) Completed 07/10/2007 Hepatitis B Vaccine Completed 01/01/2008, 08/16/2007, 07/10/2007, Additional history exists HPV (Gardasil) Vaccine Aged Out No lo nger eligible based on patient's age to complete this topic Pneumococcal Vaccine: Pediatrics (0 to 5 Years) and At-Risk Patients (6 to 64 Years) Aged Out No longer eligible based on patient's age to complete this topic documented as of this encounter Medical Devices Not on filedocumented as of this encounter Procedures Procedure Name Priority Date/Time Associated Diagnosis Comments PROCEDURE SCANNED RESULT 05/07/2024 documented in this encounter Results * PROCEDURE SCANNED RESULT (05/07/2024) 05/07/2024 No Physician Data Unknown SURGERY documented in this encounter
--- OUTSIDE RECORDS SUMMARY | 2024-08-13 17:47 | External Medical Summary | Summary of Care ---
Author Name Unknown Organization [facility] Address [address] [place] [address] Phone [phone] Care Team Providers Care Correctional Program Officer Name Role Phone Unavailable Primary Care Provider Unavailabl e Reason for Visit * Reason Onset Date Comments Appointment 04/15/2024 LVM TO SCHED EMG Encounter Details Date Type Department Care Team (Late st Contact Info) Description 04/15/2024 Telephone Neurophysiology, [place] [address] [place] [id number] Ashley, Jazmine No Resource [address] [place] [address] Appointment (LVM TO SCHED EMG) Allergies No known active allergiesdocumented as of this encounter (statuses as of 04/15/2024) Medications Medication Sig Dispensed Refills Start Date End Date Status KEFLEX 250 MG PO CAPSIndications:Impet igo one cap by mouth 4 times a day 40 0 10/02/2006 Active BACTROBAN 2 % EX OINTIndications:Impet igo apply 3 times a day as directed 15 GM 1 10/02/2006 Active documented as of this encounter (statuses as of 04/15/2024) Immunizations Name Administration Dates Next Due Seasonal [...] on file documented as of this encounter Miscellaneous Notes * Telephone Encounter - Tiffany Sawyer OSA - 04/15/2024 9:08 AM EDT LVM TO SCHED EMG documented in this encounter Plan of Treatment Health Maintenance Due Date Last Done Comments DTaP,Tdap,and Td Vaccines (5 - Tdap) 01/13/2000 05/12/1999, 04/16/1990, 01/15/1990, Additional history exists Depression Screening 2001 HIV Screening 01/13/2004 Hepatitis C Screening 2007 COVID-19 Vaccine ( season) 2023 Influenza Vaccine (FLU shot) (Season Ended) 2024 07/30/2021 Hepatitis B Completed 12/02/1999, 12/1998, 05/12/1999 GARDASIL-HPV IMMUNIZATION SERIES Aged Out No longer eligible based on patient's age to complete this topic MENINGOCOCCAL (MENACTRA/MENVEO) Aged Out No longer eligible based on patient's age to complete this topic Pneumococcal Vaccine: Pediatrics (0 to 5 Years) and At-Risk Patients (6 to 64 Years) Aged Out No longer eligible based on patient's age to complete this topic documented as of this encounter Medical Devices Not on filedocumented as of this encounter
--- OUTSIDE RECORDS SUMMARY | 2024-08-13 17:47 | External Medical Summary | Summary of Care ---
Author Name Unknown Organization [facility] Address [address] [place] [address] Phone [phone] Care Team Providers Care Management Lead Name Role Phone Unavailable Primary Care Provider Unavailabl e Reason for Visit * Reason Comments EMG * Ancillary Services (Within 30 days (routine)) - Authorized Specialty Diagnoses / Procedures Referred By Contac t Referred To Contact Neurophysiology Diagnoses Paresthesia of skin Procedures EMG Jerson Meraz PA-C [id number] [place] [address] Neurophysiology [facility] [address] [facility] [place] [address] Referral ID Status Reason Start Date Expiration Date Visits Requested Visits Authorized [id number] Authorized Ancillary Services Required 04/14/2024 08/05/2024 [id number] Encounter Details Date Type Department Care Team (Late st Contact Info) Description 05/07/2024 2:45 PM EDT NeuroDiagnostic Study Neurophysiology [facility] [address] [facility] [place] [address] Juan A Archer MD [address] [facility] [place] [address] Arrived Allergies No known active allergiesdocumented as of this encounter (statuses as of 05/07/2024) Medications Medication Sig Dispensed Refills Start Date End Date Status KEFLEX 250 MG PO CAPSIndications:Impet igo one cap by mouth 4 times a day 40 0 10/02/2006 Active BACTROBAN 2 % EX OINTIndications:Impet igo apply 3 times a day as directed 15 GM 1 10/02/2006 Active documented as of this encounter (statuses as of 05/07/2024) Immunizations Name Administration Dates Next Due Seasonal [...] on file documented as of this encounter Progress Notes * Juan A Archer MD - 05/07/2024 3:26 PM EDT The current study is done to evaluate 13 years of bilateral hand numbness in a man with known cervical canal stenosis and now apparently some new findings in the cervical MRI that might require surgical intervention Nerve conduction studies done on both median both ulnar nerves are quite normal indicating no evidence for polyneuropathy or mononeuropathies involving the listed nerves and needle EMG done bilaterally on C5 through T1 innervated muscles of the arms and hands is also unremarkable revealing no evidence for neurogenic or myopathic changes and thus no evidence to indicate the presence of brachial plexopathies or C5 through T1 motor radiculopathies A normal study however does not exclude sensory radicular issues or a central spinal cord sensory pathway issue and correlation with imaging studies of the cervical spine is required Juan A Archer MD documented in this encounter Plan of Treatment [...] Not on filedocumented as of this encounter Visit Diagnoses Diagnosis Numbness and tingling in both hands- Primary documented in this encounter
[2024-08-13] MEDS: AMITRIPTYLINE HCL 25 MG TAB PO SCH (20:27)
[2024-08-13] MEDS: SERTRALINE HCL 100 MG TABLET PO SCH (20:27)
[2024-08-13] MEDS: CHOLECALCIFEROL 25 MCG (1000 UNITS) TAB PO SCH (20:27)
[2024-08-13] MEDS: PANTOprazole 40 MG TAB PO SCH (20:27)
[2024-08-14 02:51] LABS: Basophils # (auto) 0.02 K/uL (0.00-0.20); Basophils % (auto) 0.3 %; Eosinophils # (auto) 0.09 K/uL (0.00-0.50); Eosinophils % (auto) 1.3 %; Hematocrit (blood only) 43.2 % (42.0-52.0); Hemoglobin 14.1 g/dl (14.0-18.0); Immature Granulocytes # (auto) 0.03 K/uL (0.01-0.20); Immature Granulocytes % (auto) 0.4 %; Lymphocytes # (auto) 2.05 K/uL (1.20-3.40); Lymphocytes % (auto) 30.6 %; Mean Corpuscular Hemoglobin 31.4 pg (25.0-34.0); Mean Corpuscular Hgb Conc 32.6 g/dL (32.0-36.0); Mean Corpuscular Volume 96.2 fL (80.0-100.0); Mean Platelet Volume 10.7 fL (9.4-12.4); Monocytes # (auto) 0.48 K/uL (0.11-0.59); Monocytes % (auto) 7.2 %; Neutrophils # (auto) 4.03 K/uL (1.40-6.50); Neutrophils % (auto) 60.2 %; Platelet Count 181 K/uL (130-400); RDW Coefficient of Variation 12.3 % (11.5-14.5); RDW Standard Deviation 43.6 fL (36.4-46.3); Red Blood Count 4.49 M/uL (4.70-6.10)
[2024-08-14 03:05] LABS: BUN Creatinine Ratio 7.6 (10-20); Calcium 9.2 mg/dl (8.6-10.3); Creatinine Clr Calc Pharmacy 84.5 ml/min; Magnesium 1.8 mg/dl (1.7-2.4); Potassium 4.4 mmol/L (3.5-5.1)
[2024-08-14 03:19] LABS: ANTI-Xa, UFH(UnfractionatedHep 0.35 IU/ml (0.3-0.7)
[2024-08-14] MEDS: MAGNESIUM SULFATE / D5W 1 GM/100 ML BAG IV SCH (06:18)
--- NOTE | 2024-08-14 14:58 | Electrocardiogram Report ---
Test Reason : Blood Pressure : */* mmHG Vent. Rate : 81 BPM Atrial Rate : 81 BPM P-R Int : 138 ms QRS Dur : 84 ms QT Int : 398 ms P-R-T Axes : 42 45 58 degrees QTcB Int : 462 ms Normal sinus rhythm ST elevation, consider early repolarization When compared with ECG of 13-Aug-2024 09:57, No significant change was found Confirmed by Kwame Jara ([id number]) on 08/14/2024 2:57:53 PM Referred By: REFERRED SELF Confirmed By: Kwame Jara
--- NOTE | 2024-08-14 15:18 | Hospitalist Progress Note ---
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 Patient is improving, able to transfer out of the ICU Increase activity and titrate off oxygen Transition from heparin to oral Eliquis tonight Continue Eliquis for 4 to 6 months for provoked PE from COVID-19 Follow-up echocardiogram in 6-8 weeks Case management investigating cost of Eliquis, can start with a coupon Admission and Anticipated Discharge Date Admission Date: August 13, 2024 Anticipated date of discharge: 08/15/24 Subjective Patient reports feeling significantly improved. Denies chest pain or shortness of breath. Patient reports no family history of clotting disorder Physical Exam Physical Exam: Constitutional: Alert HEENT: Mucous membranes moist. Lungs: Clear to auscultation, decreased, no wheezes rales or rhonchi CV: S1-S2, regular Abdomen: Soft, nontender, nondistended Extremities: No significant edema Neuro: No focal deficits Psych: Cooperative, normal mood Results & Data Results & Data Vital Signs (Past 12 Hours) Vital Signs Temp Pulse Resp BP Pulse Ox O2 Del Method O2 Flow Rate 08/14/24 08:25 36.9 C 08/14/24 08:22 Nasal Cannula 2 08/14/24 08:06 84 16 96 Nasal Cannula 2 08/14/24 08:00 112/75 08/14/24 07:42 93 H 18 96 08/14/24 07:03 86 19 97 08/14/24 07:00 93/69 L 08/14/24 07:00 93/69 L 08/14/24 06:30 36.5 C 82 18 99/72 L 97 Nasal Cannula 2 08/14/24 05:00 95 H 19 104/68 96 Nasal Cannula 2 08/14/24 04:00 92 H 20 94/62 L 98 Nasal Cannula 2 Diagnostic Findings Reviewed imaging, laboratory and diagnostic studies. Pertinent findings as below. COVID screen positive Ultrasound of all 4 extremities negative for DVT Echocardiogram report reviewed CBC and BMP stable (4) Pulmonary embolism Chronicity: acute Pulmonary embolism type: unspecified
[2024-08-14] MEDS ORDERED: MELATONIN 3 MG TAB PO PRN (20:18)
[2024-08-14] MEDS: APIXABAN 5 MG TABLET PO SCH (20:48)
[2024-08-15 06:57] LABS: Basophils # (auto) 0.02 K/uL (0.00-0.20); Basophils % (auto) 0.4 %; Eosinophils # (auto) 0.13 K/uL (0.00-0.50); Eosinophils % (auto) 2.4 %; Hematocrit (blood only) 43.2 % (42.0-52.0); Immature Granulocytes # (auto) 0.02 K/uL (0.01-0.20); Immature Granulocytes % (auto) 0.4 %; Lymphocytes # (auto) 1.51 K/uL (1.20-3.40); Lymphocytes % (auto) 28.2 %; Mean Corpuscular Hemoglobin 31.7 pg (25.0-34.0); Mean Corpuscular Hgb Conc 32.4 g/dL (32.0-36.0); Mean Corpuscular Volume 97.7 fL (80.0-100.0); Mean Platelet Volume 10.6 fL (9.4-12.4); Monocytes # (auto) 0.44 K/uL (0.11-0.59); Monocytes % (auto) 8.2 %; Neutrophils # (auto) 3.23 K/uL (1.40-6.50); Neutrophils % (auto) 60.4 %; Platelet Count 184 K/uL (130-400); RDW Coefficient of Variation 12.1 % (11.5-14.5); RDW Standard Deviation 44.3 fL (36.4-46.3); Red Blood Count 4.42 M/uL (4.70-6.10); White Blood Count 5.35 K/ul (4.8-10.8)
[2024-08-15 07:32] VITALS: RESP 18; TEMP 98.1; O2SAT 95
[2024-08-15] MEDS: INFLUENZA VACC TS2024-25(6m+)/PF (IIV3) 0.5mL Syr IM ONE (07:43)
[2024-08-15 08:44] LABS: ANTI-Xa, UFH(UnfractionatedHep 1.34 IU/ml (0.3-0.7)
--- NOTE | 2024-08-15 08:56 | Hospitalist Progress Note ---
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 Subsegmental left basilar opacities suggestive of atelectasis versus developing pulmonary infarct(s). --Venous Doppler:There is no sonographic evidence of deep venous thrombosis identified in the right or left lower extremity. --ECHO: Sinus tachycardia. Left ventricle is normal in size. Normal left ventricle wall thickness. Left ventricular wall motion is normal. Right ventricle is mild to moderately enlarged with Davison sign present consistent with referral diagnosis, RV strain. No valvular disease. Right ventricle systolic pressure is mildly elevated at 30 to 40 mmHg --BioFire positive for COVID-19 --IV heparin transition to Eliquis -- Weaned off of supplemental oxygen -- Hypercoagulable workup pending -- Plan to discharge home today Admission and Anticipated Discharge Date Admission Date: August 13, 2024 Subjective Patient is seen and examined at bedside Offers no complaints Denies any chest pain, dyspnea, dizziness, nausea, vomiting, abdominal pain, palpitations Sinus tachycardia on monitor Saturating well on room air Eager to get discharged home today Review of Systems Review of Systems: All systems reviewed & are unremarkable except as noted in Subjective Physical Exam Physical Exam: Physical Exam: Vitals signs as noted above General Appearance:Moderately built and nourished, no apparent distress Head: normocephalic, Atraumatic Eyes: normal inspection, EOMI Neck: supple, Trachea midline Respiratory/Chest: Normal breath sounds, CTA, No accessory muscle use Cardiovascular: S1, S2, No murmur,+Tachycardia Abdomen/GI:Soft, Non tender, Bowel sounds present Extremities/Musculoskeletal:normal inspection, no edema Neurologic/Psych:AAOX3, grossly no focal neurological deficits Skin: normal color, warm Results & Data Results & Data Vital Signs (Past 12 Hours) Vital Signs Temp Pulse Pulse Resp BP Pulse Ox O2 Del Method 08/15/24 07:32 36.7 C 96 H 18 100/67 95 Room Air 08/15/24 05:46 94 H 08/15/24 03:14 36.9 C 97 H 14 101/70 93 Room Air 08/14/24 23:02 Room Air 08/14/24 22:42 36.8 C 106 H 14 106/73 94 Room Air 08/14/24 22:08 107 H Laboratory Results Short CBC 08/15/24 Range/Units 06:17 WBC 5.35 (4.8-10.8) K/ul Hgb 14.0 (14.0-18.0) g/dl Hct 43.2 (42.0-52.0) % Plt Count 184 (130-400) K/uL (4) Pulmonary embolism Chronicity: acute Pulmonary embolism type: unspecified
[2024-08-15 12:47] VITALS: BP 109/70; PULSE 105
--- NOTE | 2024-08-15 13:17 | Discharge Summary ---
Date of Service August 15, 2024 Admission HPI Per Admitting Provider This is a 34 yr old M who has a significant PMH of anxiety, depression, hx of tobacco abuse who presents to ED 2/2 SOB and hypoxia. 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 Over the last 2 days he complained of LY and chest heaviness. He states when he would be doing his checks at work even a small walk would cause him to be winded. He went to work today and due to symptoms decided to go over to medical where they found him to be hypoxic around 85% and tachycardic. They referred him to ED. He denies any recent travel or procedures. at bedside helps elicit history. He denies any f/c/s, chest pain, cough, hemoptysis, n/v/d, abd pain, change in bowel or urinary habits. Upon arrival to ED he was notably hypoxic and placed on nasal cannula. CTA chest revealed : Extensive bilateral pulmonary emboli with evidence of right heart strain.2. Subsegmental left basilar opacities suggestive of atelectasis versus developing pulmonary infarct(s). He was started on IV heparin. His troponin was elevated at 267.7pg/ml. Admission Exam Per Admitting Provider constitutional: WD/WN, vitals as above, NAD, sitting up in bed, pleasant, conversing easily Head: Normocephalic, Atraumatic Eyes: PERRL, conjunctivae normal, anicteric sclerae ENMT: external ear and nose normal, oropharynx normal Neck: trachea midline, no thyromegaly normal visual inspection Respiratory: normal respiratory effort, lungs clear to auscultation, no wheeze, rales, rhonchi. Normal insp/exp effort, no accessory muscle use 3L of O2 via nC Cardiovascular: Tachycardic rate, regular rhythm, no murmur, no edema Vessels: no JVD or carotid bruit Chest: normal inspection of chest Abdomen: normal bowel sounds, soft, nontender, no hepatosplenomegaly Musculoskeletal: no cyanosis or clubbing, extremities motor strength 5/5 Skin: no rashes, warm and dry normal turgor Neurologic: PERRL, EOMI, accommodation nl, no face palsy, no dysarthria CN's II-XI intact bilaterally and moves all extremities Psychiatric: A+Ox3, euthymic affect Lymphatic: no cervical or axillary lymphadenopathy : deferred Principal Diagnosis COVID induced pulmonary embolism with right heart strain Transient hypoxia Discharge Data Allergies Allergy/AdvReac Type Severity Reaction Status Date / Time No Known Allergies Allergy Unverified 04/20/20 11:42 Consultations 08/13/24 12:48 ED Decision to Admit Stat 08/13/24 12:52 Consult Senior Marketing Coordinator Routine Procedures Performed Laboratory Results WBC 5.35 K/ul (4.8-10.8) 08/15/24 06:17 RBC 4.42 M/uL (4.70-6.10) L 08/15/24 06:17 Hgb 14.0 g/dl (14.0-18.0) 08/15/24 06:17 Hct 43.2 % (42.0-52.0) 08/15/24 06:17 MCV 97.7 fL (80.0-100.0) 08/15/24 06:17 MCH 31.7 pg (25.0-34.0) 08/15/24 06:17 MCHC 32.4 g/dL (32.0-36.0) 08/15/24 06:17 RDW Std Deviation 44.3 fL (36.4-46.3) 08/15/24 06:17 RDW Coeff of Stewart 12.1 % (11.5-14.5) 08/15/24 06:17 Plt Count 184 K/uL (130-400) 08/15/24 06:17 MPV 10.6 fL (9.4-12.4) 08/15/24 06:17 Immature Gran % (Auto) 0.4 % 08/15/24 06:17 Neut % (Auto) 60.4 % 08/15/24 06:17 Lymph % (Auto) 28.2 % 08/15/24 06:17 Baldwin % (Auto) 8.2 % 08/15/24 06:17 Eos % (Auto) 2.4 % 08/15/24 06:17 Baso % (Auto) 0.4 % 08/15/24 06:17 Neut # (Auto) 3.23 K/uL (1.40-6.50) 08/15/24 06:17 Lymph # (Auto) 1.51 K/uL (1.20-3.40) 08/15/24 06:17 Baldwin # (Auto) 0.44 K/uL (0.11-0.59) 08/15/24 06:17 Eos # (Auto) 0.13 K/uL (0.00-0.50) 08/15/24 06:17 Baso # (Auto) 0.02 K/uL (0.00-0.20) 08/15/24 06:17 Immature Gran # (Auto) 0.02 K/uL (0.01-0.20) 08/15/24 06:17 PT 11.1 Seconds (9.0-12.0) 08/13/24 10:02 INR 1.0 (0.9-1.1) 08/13/24 10:02 APTT 25 Seconds (21-31) 08/13/24 10:02 PTT Ratio 0.9 08/13/24 10:02 Heparin Anti-Xa, Unfract 1.34 IU/ml (0.3-0.7) H* 08/15/24 06:17 Sodium 140 mmol/L (136-145) 08/14/24 02:36 Potassium 4.4 mmol/L (3.5-5.1) 08/14/24 02:36 Chloride 105 mmol/L (98-107) 08/14/24 02:36 Carbon Dioxide 26 mmol/L (21-32) 08/14/24 02:36 Anion Gap 9 (3-11) 08/14/24 02:36 BUN 9 mg/dl (6-23) 08/14/24 02:36 Creatinine 1.19 mg/dl (0.6-1.4) 08/14/24 02:36 Est Cr Clr Drug Dosing 84.5 ml/min 08/14/24 02:36 eGFR 81.69 08/14/24 02:36 BUN/Creatinine Ratio 7.6 (10-20) L 08/14/24 02:36 Glucose 115 mg/dl (70-99(Fasting)) H 08/14/24 02:36 POC Glucose 88 mg/dl (70-99) 08/13/24 20:20 Calcium 9.2 mg/dl (8.6-10.3) 08/14/24 02:36 Magnesium 1.8 mg/dl (1.7-2.4) 08/14/24 02:36 Total Bilirubin 0.4 mg/dl (0.2-1.0) 08/13/24 10:02 AST 19 U/L (13-39) 08/13/24 10:57 ALT 24 U/L (7-52) 08/13/24 10:02 Alkaline Phosphatase 94 U/L (34-104) 08/13/24 10:02 Troponin I High Sens 257.3 pg/ml (0-20) H* D 08/14/24 01:24 B-Natriuretic Peptide 29 pg/ml (0-100) 08/13/24 12:15 Total Protein 7.9 gm/dl (6.0-8.3) 08/13/24 10:02 Albumin 4.7 gm/dl (3.4-5.0) 08/13/24 10:02 Globulin 3.2 gm/dl (2.5-4.0) 08/13/24 10:02 Albumin/Globulin Ratio 1.5 (0.9-2) 08/13/24 10:02 Lipase 29 U/L (11-82) 08/13/24 10:02 Homocysteine 9.5 umol/L (<11.4) 08/13/24 10:29 TSH 2.118 uIu/ml (0.300-4.500) 08/13/24 10:02 Urine Color Yellow 08/13/24 14:45 Urine Appearance Clear (Clear) 08/13/24 14:45 Urine pH 6.0 (4.5-7.5) 08/13/24 14:45 Ur Specific Burney 1.035 (1.000-1.030) H 08/13/24 14:45 Urine Protein Negative (Negative) 08/13/24 14:45 Urine Glucose (UA) Negative (Negative) 08/13/24 14:45 Urine Ketones Negative (Negative) 08/13/24 14:45 Urine Blood Negative (Negative) 08/13/24 14:45 Urine Nitrite Negative (Negative) 08/13/24 14:45 Urine Bilirubin Negative (Negative) 08/13/24 14:45 Urine Urobilinogen Negative (Negative) 08/13/24 14:45 Ur Leukocyte Esterase Negative (Negative) 08/13/24 14:45 Nasal Screen MRSA (PCR) Negative (Negative) 08/13/24 14:45 Adenovirus (PCR) Not Detected (NotDetected) 08/13/24 14:45 B. pertussis DNA (PCR) Not Detected (NotDetected) 08/13/24 14:45 B.parapertussis DNA PCR Not Detected (NotDetected) 08/13/24 14:45 C. pneumoniae DNA (PCR) Not Detected (NotDetected) 08/13/24 14:45 Coronavirus OC43 (PCR) Not Detected (NotDetected) 08/13/24 14:45 Coronavirus HKU1 (PCR) Not Detected (NotDetected) 08/13/24 14:45 Coronavirus 229E (PCR) Not Detected (NotDetected) 08/13/24 14:45 SARS-CoV-2 (PCR) DETECTED (NotDetected) A 08/13/24 14:45 Coronavirus NL63 (PCR) Not Detected (NotDetected) 08/13/24 14:45 Human Metapneumovir PCR Not Detected (NotDetected) 08/13/24 14:45 Influenza Type A (PCR) Not Detected (NotDetected) 08/13/24 14:45 Influenza Type B (PCR) Not Detected (NotDetected) 08/13/24 14:45 M. pneumoniae (PCR) Not Detected (NotDetected) 08/13/24 14:45 Parainfluenza 1 (PCR) Not Detected (NotDetected) 08/13/24 14:45 Parainfluenza 2 (PCR) Not Detected (NotDetected) 08/13/24 14:45 Parainfluenza 3 (PCR) Not Detected (NotDetected) 08/13/24 14:45 Parainfluenza 4 (PCR) Not Detected (NotDetected) 08/13/24 14:45 RSV (PCR) Not Detected (NotDetected) 08/13/24 14:45 Entero/Rhino (PCR) Not Detected (NotDetected) 08/13/24 14:45 Impressions Chest CTA 08/13/24 10:02 CT angio chest PE protocol CT DOSE: 726.44 mGy.cm HISTORY: 34 years-old Male with Chest Pain, eval for PE. Acute chest pain with shortness of breath TECHNIQUE: Multiple CTA images of the chest were obtained after the intravenous administration of 112 ml Optiray. Coronal and sagittal MIPS were obtained from the axial data set and were submitted for review. All measurements were obtained according to NASCET criteria. A dose lowering technique was utilized adhering to the principles of ALARA. COMPARISON: CT abdomen and pelvis 04/20/2020 FINDINGS: CTA: Heart is normal in size without pericardial effusion. Unremarkable thoracic aorta. There is a large amount of bilateral main, lobar, segmental and subsegmental pulmonary emboli bilaterally. There is straightening of the intraventricular septum. No sagittal pulmonary embolus identified. . CT CHEST: No thyroid nodule identified.r mediastinal and hilar lymph nodes measuring up to 8 mm are favored to be benign. No pathologically enlarged lymph nodes. There is no pneumothorax, pleural effusion or pulmonary edema. Subsegmental left basilar groundglass and consolidative opacities. Right lung is generally clear. Central airways are clear. No acute upper abdominal abnormality. No acute fracture. IMPRESSION: 1. Extensive bilateral pulmonary emboli with evidence of right heart strain. 2. Subsegmental left basilar opacities suggestive of atelectasis versus developing pulmonary infarct(s). ACT 112: Negative or not required by law. The above report was generated using voice recognition software. It may contain grammatical, syntax or spelling errors. Electronically signed by: Sathish Garcia M.D. 08/13/2024 10:49 AM Venous Doppler Study 08/13/24 12:57 ULTRASOUND BILATERAL UPPER EXTREMITY VENOUS CLINICAL HISTORY: Pulmonary embolus. COMPARISON STUDY: No priors. TECHNIQUE: Real-time, grayscale, and color Doppler sonography of the deep veins of the right and left upper extremity is performed. Compression and augmentation were utilized. FINDINGS: There is no sonographic evidence of deep venous thrombosis identified in the right or left upper extremity. The internal jugular, axillary, and brachial veins are patent and normally compressible bilaterally. Normal venous waveforms and augmentation are seen within the right and left subclavian vein. The cephalic and basilic veins are clear in both arms. The visualized radial and ulnar veins are patent bilaterally. IMPRESSION: There is no sonographic evidence of deep venous thrombosis identified in the right or left upper extremity. ACT 112: Negative or not required by law. Electronically signed by: Prem Goldstein M.D. 08/13/2024 2:13 PM Ordered Studies 08/13/24 10:02 CT angio chest PE protocol Stat 08/13/24 11:54 US venous duplex leg [US venous doppler LE BI] Stat 08/13/24 12:57 US venous doppler UE BI Stat Hospital Course (1) Pulmonary embolism associated with COVID-19: (2) Demand ischemia of myocardium: (3) Acute hypoxic respiratory failure: (4) Pulmonary embolism: (5) Right ventricular failure due to disorder of pulmonary circulation: Plan Acute pulmonary embolism Likely secondary to COVID-19 infection Acute respiratory failure with hypoxia --Chest CTA:Extensive bilateral pulmonary emboli with evidence of right heart strain. Subsegmental left basilar opacities suggestive of atelectasis versus developing pulmonary infarct(s). --Venous Doppler:There is no sonographic evidence of deep venous thrombosis identified in the right or left lower extremity. --ECHO: Sinus tachycardia. Left ventricle is normal in size. Normal left ventricle wall thickness. Left ventricular wall motion is normal. Right ventricle is mild to moderately enlarged with Davison sign present consistent with referral diagnosis, RV strain. No valvular disease. Right ventricle systolic pressure is mildly elevated at 30 to 40 mmHg --BioFire positive for COVID-19 --IV heparin transition to Eliquis -- Weaned off of supplemental oxygen -- Hypercoagulable workup pending -- Plan to discharge home today Total Time Total Time Spent Total Time Spent (In Minutes): 41 minutes Discharge Plan Discharge Items Patient Disposition: Home - Self-Care Reason For Visit: PULMONARY EMBOLISM WITH R HEART STRAIN Discharge Diagnosis: COVID induced pulmonary embolism with right heart strain Transient hypoxia Condition on Discharge: Fair Activity: As commented below Activity Comment: Slowly increase activity as tolerated Exercise/Sports: Wait until after follow-up appointment Non-emergency contact: Primary Care Provider Call non-emergency contact if: your symptoms worsen Follow-up/Referrals: [facility] [Primary Care Provider] - (Your [place] primary care provider's office will contact you for a follow up appointment. ) Diet: Regular Addtl Attending Provider Instructions: Anticipate you will need anticoagulation for 4 to 6 months. Discuss with your PCP follow-up echocardiogram in approximately 6 to 8 weeks Follow-up with your primary care physician in 1 week as advised -- Continue apixaban(Eliquis) 10 mg twice a day for 6 more days (Until 08/20/24) and then take 5 mg twice a day (From 08/21/24). Duration of anticoagulation with apixaban to be determined by your primary care physician. -- Your hypercoagulable workup is pending at the time of discharge. Follow-up with your physician for results. Seek immediate medical attention if your symptoms reoccur or worsen Please take all medications as instructed on discharge list below. Please call if you have any questions or problems. You can reach a [facility] hospitalist on duty at [facility] 24 hours a day by calling [phone] Pending Studies at Discharge: Yes Studies:: Hypercoagulable workup Stand-Alone Forms: My [facility], Smoking Cessation Medications and DC Order Prescriptions: New Eliquis 5 mg (74 tabs) tablets,dose pack See Rx Instructions .ROUTE .COMPLEX Qty: 74 0RF Rx Instructions: Take 2 tablets 2 times daily for 7 days then 1 tablet 2 times daily Continued amitriptyline 75 mg Tablet 75 mg PO HS sertraline 100 mg Tablet 100 mg PO HS omeprazole 20 mg Tablet,Delayed Release (Dr/Ec) 20 mg PO HS cholecalciferol (vitamin D3) [Vitamin D3] 50 mcg (2,000 unit) Capsule 50 mcg PO HS Discharge Orders: Discharge Order (Routine); Ordered 08/15/24 Ordered By: Dwayne Hamlin/Other Patient Handouts: COVID19 Home Disinfect, Apixaban Oral Tablet, Pulmonary Embolism, 2019 Novel Coronavirus, Pulmonary Embolism Dc Admission Data Admit Date/Time: 08/13/24 12:49 Attending Provider: Dwayne Frey Admit Provider: Cristy Montelongo Primary Care Provider: [facility] Other Providers: Cristy Montelongo; Anjel Bran Other Interventions: Discharge Summary Assessment (RN) Last Done: 08/15/24 12:46
== END 2024-08-15 13:29 | disposition home or self-care (01) | DRG 175 ==
LOC: ED 09:47 → 1E 12:49 → SUATTDRO 12:49 → 1E 13:15 → 2W 08-14 18:22
DX: U07.1 COVID-19; K21.9 Gastro-esophageal reflux disease without esophagitis; Z79.899 Other long term (current) drug therapy; G47.33 Obstructive sleep apnea (adult) (pediatric); I51.7 Cardiomegaly; I24.89 Other forms of acute ischemic heart disease; F32.A Depression, unspecified; I26.09 Other pulmonary embolism with acute cor pulmonale; J96.01 Acute respiratory failure with hypoxia; F41.9 Anxiety disorder, unspecified; F17.290 Nicotine dependence, other tobacco product, uncomplicated